=== PATIENT | male | born 1960 | race Two or more races ===

== ENCOUNTER 2017-12-07 07:54 | Outpatient (CLI) | payer OTHER ==
[~2017-12-07 07:54] MED LIST: NO; PLAVIX75 MG PO; PROVENTIL3 ML/2.5 M IH; SIMVASTATIN20 MG PO; ZITHROMAX500 MG PO; ZYNCOF 20-400120 ML PO
[2017-12-10] MEDS ORDERED: NAMENDA10 MG (04:39)
[2017-12-10] MEDS ORDERED: COUMADIN2.5 MG (04:39)
[2017-12-10] MEDS ORDERED: FENOFIBRATE160 MG (04:39)
[2017-12-10] MEDS ORDERED: ARICEPT10 MG (04:39)
[2017-12-10] MEDS ORDERED: DOLOGESIC 500-1 EACH PO (08:47)
== END 2017-12-07 07:57 | disposition home or self-care (01) ==
LOC: LAB 07:54
DX: I10 Essential (primary) hypertension (principal); E11.9 Type 2 diabetes mellitus without complications; E03.9 Hypothyroidism, unspecified; E78.2 Mixed hyperlipidemia; Z80.3 Family history of malignant neoplasm of breast; D68.61 Antiphospholipid syndrome; E72.11 Homocystinuria; Z79.01 Long term (current) use of anticoagulants; D51.3 Other dietary vitamin B12 deficiency anemia; E55.9 Vitamin D deficiency, unspecified; I63.9 Cerebral infarction, unspecified; E78.5 Hyperlipidemia, unspecified; A92.0 Chikungunya virus disease; R73.01 Impaired fasting glucose; E88.81 Metabolic syndrome and other insulin resistance; D50.8 Other iron deficiency anemias; D51.8 Other vitamin B12 deficiency anemias

== ENCOUNTER 2018-03-08 16:53 | Outpatient (CLI) | payer OTHER ==
[~2018-03-08 16:53] MED LIST changes: +ARICEPT10 MG; +COUMADIN2.5 MG; +DOLOGESIC 500-1 EACH PO; +FENOFIBRATE160 MG; +NAMENDA10 MG
== END 2018-03-08 17:00 | disposition home or self-care (01) ==
LOC: LAB 16:53
DX: N40.0 Benign prostatic hyperplasia without lower urinary tract symptoms (principal); R97.20 Elevated prostate specific antigen [PSA]

== ENCOUNTER 2018-04-07 08:29 | Outpatient (CLI) | payer OTHER | END 2018-04-07 08:46 | disposition home or self-care (01) | LOC: MRI 08:29 | DX: N28.1 Cyst of kidney, acquired (principal) | CPT/HCPCS: 74182 ==

== ENCOUNTER → 2018-04-07 09:34 | Outpatient (CLI) | payer OTHER | END | disposition home or self-care (01) | LOC: LAB 09:34 | DX: N28.1 Cyst of kidney, acquired (principal) ==

== ENCOUNTER → 2018-05-06 07:45 | Outpatient (CLI) | payer OTHER | END | disposition home or self-care (01) | LOC: LAB 07:45 | DX: D50.8 Other iron deficiency anemias (principal); D51.1 Vitamin B12 deficiency anemia due to selective vitamin B12 malabsorption with proteinuria; I10 Essential (primary) hypertension; D68.8 Other specified coagulation defects; E72.11 Homocystinuria; D68.61 Antiphospholipid syndrome; E11.9 Type 2 diabetes mellitus without complications; E03.8 Other specified hypothyroidism; E78.2 Mixed hyperlipidemia ==

== ENCOUNTER 2018-08-06 10:17 | Day surgery (SDC) | payer OTHER | END 2018-08-06 14:59 | disposition home or self-care (01) | LOC: AMB-ENDOS 10:17 | DX: D12.4 Benign neoplasm of descending colon (principal); K64.2 Third degree hemorrhoids ==

== ENCOUNTER 2019-07-29 06:09 | Outpatient (CLI) | payer OTHER | END 2019-07-29 06:50 | disposition home or self-care (01) | LOC: LAB 06:09 | DX: I63.89 Other cerebral infarction (principal); E72.11 Homocystinuria; Z79.01 Long term (current) use of anticoagulants; D51.3 Other dietary vitamin B12 deficiency anemia; E55.9 Vitamin D deficiency, unspecified; Z82.3 Family history of stroke; Z80.3 Family history of malignant neoplasm of breast; E78.49 Other hyperlipidemia; A92.0 Chikungunya virus disease; E88.81 Metabolic syndrome and other insulin resistance; D51.8 Other vitamin B12 deficiency anemias; I10 Essential (primary) hypertension; K90.89 Other intestinal malabsorption; D68.8 Other specified coagulation defects ==